=== PATIENT | male | born 1970 | race Caucasian/White ===

== ENCOUNTER 2017-07-23 12:21 | Day surgery (SDC) | payer OTHER | END 2017-07-23 15:05 | disposition home or self-care (01) | LOC: GIL 12:21 | DX: R19.7 Diarrhea, unspecified (principal); Z53.9 Procedure and treatment not carried out, unspecified reason ==

== ENCOUNTER → 2017-09-17 | Day surgery (SDC) | payer OTHER ==
[~2017-09-17] MED LIST: FENTAnyl 50 MCG/ML VIAL; MIDAZOLAM 1 MG/ML 2 ML INJ
== END | disposition home or self-care (01) ==
LOC: GIL 12:28
DX: K29.30 Chronic superficial gastritis without bleeding (principal); K20.8 Other esophagitis; Z85.46 Personal history of malignant neoplasm of prostate
CPT/HCPCS: 43239; 88305; 88312; 88313